=== PATIENT | male | born 1975 ===

== ENCOUNTER 2018-07-18 16:37 | Emergency (ER) | payer OTHER ==
[2018-07-18 16:44] VITALS: BP 168/91; PULSE 90; TEMP 98.2; O2SAT 98
[2018-07-18] MEDS ORDERED: Sodium Chloride 0.9% 1,000 ML IV STA (17:19)
[2018-07-18 17:24] VITALS: RESP 18
[2018-07-18 17:41] LABS: BASO # 0.1 K/uL (0.0-0.2); BASO % 0.6 % (0.0-2.0); EOS # 0.1 K/uL (0.0-0.7); EOS % 0.8 % (0.0-4.0); HEMOGLOBIN 15.1 g/dL (12.0-18.0); LYMPH % 22.6 % (20.0-40.0); MEAN CELL VOLUME 87.2 fl (80.0-94.0); MEAN CORPUSCULAR HEMOGLOBIN 29.7 pg (27.0-31.0); MEAN CORPUSCULAR HGB CONC 34.1 g/dL (33.0-37.0); MEAN PLATELET VOLUME 9.1 fl (7.2-11.7); MONO # 0.4 K/uL (0.0-0.8); MONO % 4.9 % (0.0-10.0); NEUT # 6.3 K/uL (1.8-7.0); NEUT % 71.1 % (50.0-75.0); NRBC % 0.1 % (0.0-0.0); RBC 5.1 Mil/uL (4.40-5.90); RED CELL DISTRIBUTION WIDTH 13.7 % (11.5-14.5); WHITE BLOOD COUNT 8.9 K/uL (4.8-10.8)
--- NOTE | 2018-07-18 17:43 | ED PDOC ---
HPI: General Adult Time Seen by Provider: 07/18/18 16:49 Chief Complaint (Nursing): Shortness Of Breath Chief Complaint (Provider): Dizziness History Per: Patient History/Exam Limitations: no limitations Onset/Duration Of Symptoms: Hrs Current Symptoms Are (Timing): Still Present Additional Complaint(s): 42 y/o male with a PMHx of controlled DM presents to the ED for evaluation of dizziness, onset prior to arrival. Patient reports he was driving home when he began feeling "room-spinning" dizziness. Patient states he stopped driving and pulled over to the side. Patient notes he was unable to drive at that time and called a relative to pick him up. Patient reports at that time, dizziness was associated with nausea, shortness of breath, weakness, neck pain, chills, a mild headache, blurry vision and feeling like he was going to pass out. Patient states shortness of breath, and blurry vision have now resolved and is only complaining of the dizziness, nausea, weakness, neck pain, chills and headache. Patient notes of taking Metformin 1000mg for DM but denies taking any today. Patient states dizziness worsens with movement. Otherwise, patient denies numbness, tingling, cough, congestion, rhinorrhea, chest pain, abdominal pain, leg pain, arm pain, fall, and injury. PMD: Maldonado Connor Jr. Past Medical History Reviewed: Historical Data, Nursing Documentation, Vital Signs Vital Signs: Last Vital Signs Temp 98.2 F 07/18/18 16:41 Pulse 90 07/18/18 16:41 Resp 18 07/18/18 17:22 BP 168/91 H 07/18/18 16:41 Pulse Ox 98 07/18/18 16:41 - Medical History PMH: Diabetes - Surgical History Surgical History: No Surg Hx - Family History Family History: States: Unknown Family Hx - Immunization History Hx Tetanus Toxoid Vaccination: No Hx Influenza Vaccination: Yes Hx Pneumococcal Vaccination: No - Home Medications Home Medications: Ambulatory Orders Medication Instructions Recorded Cyclobenzaprine [Cyclobenzaprine 10 mg PO TID #21 tab 11/19/16 HCl] Glimepiride 2 mg PO DAILY 11/19/16 Ibuprofen [Motrin] 600 mg PO Q8 #30 tab 11/19/16 Meclizine [Meclizine*] 25 mg PO Q12 PRN #10 tab 07/18/18 - Allergies Allergies/Adverse Reactions: Allergies Allergy/AdvReac Type Severity Reaction Status Date / Time No Known Allergies Allergy Unverified 11/19/16 21:39 Review of Systems ROS Statement: Except As Marked, All Systems Reviewed And Found Negative Constitutional: Positive for: Chills, Weakness Eyes: Positive for: Vision Change (blurry) ENT: Negative for: Nose Discharge, Nose Congestion Cardiovascular: Negative for: Chest Pain Respiratory: Positive for: Shortness of Breath. Negative for: Cough Gastrointestinal: Positive for: Nausea. Negative for: Vomiting, Abdominal Pain Musculoskeletal: Negative for: Arm Pain, Leg Pain Neurological: Positive for: Headache (mild), Dizziness. Negative for: Weakness, Numbness (tingling) Physical Exam - Reviewed Nursing Documentation Reviewed: Yes Vital Signs Reviewed: Yes - Physical Exam Appears: Positive for: No Acute Distress Head Exam: Positive for: ATRAUMATIC, NORMOCEPHALIC Skin: Positive for: Normal Color, Warm, Dry Eye Exam: Positive for: Normal appearance, EOMI, PERRL Neck: Positive for: Normal, Painless ROM, Supple Cardiovascular/Chest: Positive for: Regular Rate, Rhythm. Negative for: Murmur Respiratory: Positive for: Normal Breath Sounds. Negative for: Respiratory Distress Gastrointestinal/Abdominal: Positive for: Normal Exam, Soft. Negative for: Tenderness, Distended Back: Positive for: Normal Inspection. Negative for: L CVA Tenderness, R CVA Tenderness, Vertebral Tenderness Extremity: Positive for: Normal ROM. Negative for: Deformity Neurologic/Psych: Positive for: Alert, home health registered nurse II-XII (intact), Oriented, Cerebellar Tests (normal). Negative for: Motor/Sensory Deficits - Laboratory Results Result Diagrams: 07/18/18 17:37 07/18/18 17:37 Lab Results: no acute - ECG ECG: Positive for: Interpreted By Me, Viewed By Me ECG Rhythm: Positive for: Normal QRS, Normal ST Segment, Sinus Rhythm O2 Sat by Pulse Oximetry: 98 (RA) Pulse Ox Interpretation: Normal - CT Scan/US ct Other Rad Studies (CT/US): Read By Radiologist Other Rad Interpretation: no acute - Progress ED Course And Treament: 2051: Stable. AAOx3. Pain free. Tolerated PO. Fu with pcp. Ambulated with no issues. Not dizzy. Medical Decision Making Medical Decision Making: Time: 1719 Impression: Dizziness Plan: -- CT Head w/o Contrast -- EKG -- CMP -- Troponin I -- CBC with Differentials -- Antivert 25 mg PO -- Sodium Chloride IV 1000 mls/hr Scribe Attestation: Documented by Gama Arango, acting as a scribe for Shad Birmingham MD. Provider Scribe Attestation: All medical record entries made by the Scribe were at my direction and personally dictated by me. I have reviewed the chart and agree that the record accurately reflects my personal performance of the history, physical exam, medical decision making, and the department course for this patient. I have also personally directed, reviewed, and agree with the discharge instructions and disposition. Disposition - Clinical Impression Clinical Impression: Dizziness - Patient ED Disposition Is Patient to be Admitted: No Counseled Patient/Family Regarding: Studies Performed, Diagnosis, Need For Followup, Rx Given - Disposition Referrals: [facility] [Outside] - 07/20/18 Disposition: Routine/Home Disposition Time: 20:53 Condition: STABLE Additional Instructions: Return if not better in 3 days. Prescriptions: Meclizine [Meclizine*] 25 mg PO Q12 PRN #10 tab PRN Reason: Dizziness Instructions: Vertigo (a Type of Dizziness) Forms: [employer] ([place]), [facility] ED School/Work Excuse
[2018-07-18 17:51] LABS: ALB/GLOB RATIO 1.3 (1.0-2.1); ALBUMIN 4.7 g/dL (3.5-5.0); ALT/SGPT 77 U/L (21-72); AST/SGOT 42 U/L (17-59); BLOOD UREA NITROGEN 10 mg/dl (9-20); CALCIUM 9.5 mg/dL (8.4-10.2); GFR NON-AFRICAN AMERICAN > 60
--- NOTE | 2018-07-19 10:01 | CT ---
Date of service: 07/18/2018 PROCEDURE: CT HEAD WITHOUT CONTRAST. HISTORY: Shortness of breath, dizziness and headache. COMPARISON: None available. TECHNIQUE: Axial computed tomography images were obtained through the head/brain without intravenous contrast. Supplemental Coronal and Sagittal projections created and reviewed. Radiation dose: Total exam DLP = 967.78 mGy-cm. This CT exam was performed using one or more of the following dose reduction techniques: Automated exposure control, adjustment of the mA and/or kV according to patient size, and/or use of iterative reconstruction technique. FINDINGS: HEMORRHAGE: No intracranial hemorrhage. BRAIN: No mass effect or edema. No atrophy or chronic microvascular ischemic changes. VENTRICLES: Unremarkable. No hydrocephalus. CALVARIUM: Unremarkable. PARANASAL SINUSES: Unremarkable as visualized. No significant inflammatory changes. MASTOID AIR CELLS: Unremarkable as visualized. No inflammatory changes. OTHER FINDINGS: None. IMPRESSION: No acute intracranial abnormalities. No significant findings to account for the clinical presentation. Concordant results (preliminary interpretation) provided by [employer]. Procedure Completed: 17:25. Preliminary Report: Interpreted and electronically signed: 18:35. Final Interpretation: 09:57. July 19, 2018
--- NOTE | 2018-07-19 10:07 | CARD ---
APPROVED REPORT Date of service: 07/18/2018 EKG Measurement Heart [id number] <Conclusion> Normal sinus rhythm Normal ECG
== END 2018-07-18 21:09 | disposition home or self-care (01) ==
LOC: H.ER 16:37
DX: R42 Dizziness and giddiness (principal); E11.9 Type 2 diabetes mellitus without complications
CPT/HCPCS: 70450; 80053; 84484; 85025; 93005; 96360; 99282; J7030